=== PATIENT | female | born 1945 | race Caucasian/White ===

== ENCOUNTER 2020-05-09 19:56 | Emergency (ER) | payer OTHER ==
[~2020-05-09] VITALS: Ht 157.5 cm; Wt 57.2 kg
[2020-05-09 20:07] VITALS: BP 150/64
--- NOTE | 2020-05-09 20:10 | NUR ---
TO LOBBY A/W BED AMBULATORY
--- NOTE | 2020-05-09 20:52 | NUR ---
Patient discharged with v/s stable. Written and verbal after care instructions given and explained. Patient alert, oriented and verbalized understanding of instructions. Ambulatory with steady gait. All questions addressed prior to discharge. ID band removed. Patient advised to follow up with PMD. Rx of chlorohexidine gluconate and orajel mouth spray given. Patient educated on indication of medication including possible reaction and side effects. Opportunity to ask questions provided and answered.
[2020-05-09 20:53] VITALS: BP 150/64
== END 2020-05-09 20:52 | disposition home or self-care (01) ==
LOC: MED 19:56
DX: R68.2 Dry mouth, unspecified (principal)
CPT/HCPCS: 99282

== ENCOUNTER 2020-05-16 15:02 | Emergency (ER) | payer OTHER ==
[~2020-05-16] VITALS: Ht 157.5 cm; Wt 56.2 kg
[2020-05-16 15:11] VITALS: BP 102/53
--- NOTE | 2020-05-16 15:15 | NUR ---
PT TAKEN TO BED 2. ISOLATED FOR COVID PRECAUTIONS.
[2020-05-16] MEDS ORDERED: KETOROLAC 15 MG/ML VIAL IM ONE (15:35)
--- NOTE | 2020-05-16 15:49 | NUR ---
75/F C/O THROAT DRYNESS AND BACK PAIN SINCE SUNDAY; PT STATES SHE WAS SEEN HERE SUNDAY FOR SAME THROAT COMPLAINT AND WAS PRESCRIBED MEDICATION. PT STATES THE MEDICATION HAS NOT HELPED AND NOW SHE HAS DEVELOPED BACK PAIN TO LOWER BACK. PT ALSO C/O BODY ACHES. PT STATES SHE LIVES ALONE AND DOES NOT HAVE FAMILY AND WALKS EVERYWHERE. PT STATES SHE WALKED TO THE PHARMACY AFTER HER VISIT IN THE ED AND STATES IT WAS LATE AT NIGHT AND BELIEVES SHE IS TIRED FROM WALKING. PT DENIES ANY INJURY OR TRAUMA OR FALL. HX HTN, DEPRESSION
--- NOTE | 2020-05-16 16:08 | NUR ---
PT RETURNED FROM X-RAY
[2020-05-16 17:54] VITALS: BP 102/53
--- NOTE | 2020-05-16 17:54 | NUR ---
Patient discharged with v/s stable. Written and verbal after care instructions given and explained. Patient alert, oriented and verbalized understanding of instructions. Ambulatory with steady gait. All questions addressed prior to discharge. ID band removed. Patient advised to follow up with PMD. Rx of Augmentin 875, Naproxen 500mg given. Patient educated on indication of medication including possible reaction and side effects. Opportunity to ask questions provided and answered.
== END 2020-05-16 17:54 | disposition home or self-care (01) ==
LOC: MED 15:02
DX: R09.1 Pleurisy (principal); M54.9 Dorsalgia, unspecified; J18.9 Pneumonia, unspecified organism; Z20.828 Contact with and (suspected) exposure to other viral communicable diseases
CPT/HCPCS: 71045; 72072; 87081; 96372; 99284; J1885; U0003

== ENCOUNTER 2020-06-05 19:24 | Emergency (ER) | payer OTHER ==
[~2020-06-05] VITALS: Ht 157.5 cm; Wt 56.7 kg
[2020-06-05 19:55] VITALS: BP 129/90
--- NOTE | 2020-06-05 19:58 | NUR ---
TO LOBBY A/W BED AMBULATORY
--- NOTE | 2020-06-05 20:00 | NUR ---
SEEN AND EXAMINED BY KARIME WITH ORDERS, CARRIED OUT.
[2020-06-05] MEDS ORDERED: ASPIRIN 81 MG TAB.CHEW PO ONE (20:05)
[2020-06-05 20:31] LABS: BASOPHILS # (AUTO) 0.1 K/uL (0.00-0.22); BASOPHILS % (AUTO) 1.4 % (0.0-2.0); EOSINOPHILS # (AUTO) 0.5 K/uL (0-0.4); EOSINOPHILS % (AUTO) 5.6 % (0.0-4.0); HEMATOCRIT 40.6 % (36-48); HEMOGLOBIN 13.6 g/dL (12.0-16.0); LYMPHOCYTES # (AUTO) 2.2 K/uL (2.5-16.5); LYMPHOCYTES % (AUTO) 25.4 % (20.5-51.1); MEAN CORPUSCULAR HEMOGLOBIN 31 pg (27-31); MEAN CORPUSCULAR HGB CONC 33 g/dL (33-37); MEAN CORPUSCULAR VOLUME 93.3 fL (80-94); MONOCYTES # (AUTO) 0.8 K/uL (0.8-1.0); MONOCYTES % (AUTO) 9.4 % (1.7-9.3); NEUTROPHILS # (AUTO) 5.1 K/uL (1.8-7.7); NEUTROPHILS % (AUTO) 58.2 % (42.2-75.2); PLATELET COUNT (AUTO) 405 K/uL (140-450); RED BLOOD CELL COUNT(AUTO) 4.35 MIL/uL (4.20-5.40); RED CELL DISTRIBUTION WIDTH 14.5 % (11.6-13.7); WHITE BLOOD COUNT (AUTO) 8.8 K/uL (4.8-10.8)
[2020-06-05 20:45] LABS: ALBUMIN 3.7 g/dL (3.4-5.0); ANION GAP 12.4 (8-16); ASPARTATE AMINOTRANSFERASE 25 U/L (15-37); CARBON DIOXIDE 30.5 mmol/L (21-32); CHLORIDE 105 mmol/L (98-107); CREATININE 0.9 mg/dL (0.6-1.3); GLUCOSE 102 mg/dL (74-106); POTASSIUM 3.9 mmol/L (3.5-5.1); SODIUM SERUM 144 mmol/L (136-145); TOTAL BILIRUBIN 0.2 mg/dL (0.0-1.0); UREA NITROGEN, BLOOD 18 mg/dL (7-18)
--- NOTE | 2020-06-05 20:50 | NUR ---
MEDICATED PER ERMDS ORDERS, TOLERATED WELL.
[2020-06-05 20:59] LABS: PROTHROMBIN TIME 9.6 secs (10.8-13.4)
--- NOTE | 2020-06-05 21:00 | NUR ---
ALL RESULTS BACK AND NOTED BY ERMD AND FOR D/C
--- NOTE | 2020-06-05 21:14 | NUR ---
EKG PERFORMED IN PHLEBOTOMY CHAIR WITH SCREEN. EKG READS SINUS RHYTHM @ 69
[2020-06-05 22:34] VITALS: BP 119/78
== END 2020-06-05 22:34 | disposition home or self-care (01) ==
LOC: MED 19:24
DX: R07.89 Other chest pain (principal); I10 Essential (primary) hypertension
CPT/HCPCS: 36415; 71045; 80053; 84484; 85025; 85610; 85730; 93005; 99283

== ENCOUNTER 2020-07-28 18:17 | Emergency (ER) | payer OTHER ==
[~2020-07-28] VITALS: Ht 152.4 cm; Wt 54.4 kg
[2020-07-28 18:21] VITALS: BP 130/81
--- NOTE | 2020-07-28 18:25 | NUR ---
PATIENT AMBULATED TO BED 10 WITH STEADY/EVEN GAIT.
--- NOTE | 2020-07-28 18:31 | NUR ---
75 Y/O F BROUGHT IN FROM HOME WITH C/C LEFT EYE PAIN X 5 DAYS. PT STATES A VASE FELL ON HER HEAD 3 WEEKS AGO. TODAY, SHE STATES THAT THE PAIN WORSEN; PT DESCRIBES PAIN 10/10 WITH ASSOCIATED BLURRY VISION TO HER LEFT EYE. PT ALSO STATES ASSOCIATED PAIN TO THE BACK OF HER NECK FROM THE SAME INCIDENT. NO TRAUMA NOTED TO HER HEAD; PT DENIES PAIN ON PALPATION TO HEAD/NECK/BACK. PT STATES SHE TOOK TYLENOL FOR THE PAIN LAST NIGHT 07/27 WITH NO RELIEF. PT DENIES HEADACHE, DIZZINESS, N/V/, ABDOMINAL PAIN, CHEST PAIN, SHORTNESS OF BREATH, RINGING OF THE EARS, FEVER/CHILLS, COLD LIKE SYMPTOMS. PT PLACED ONTO REFUND CLERK. LUNG SOUNDS CTA. BED LOCKED IN LOWEST POSITION, SIDE RAILS X 1. PMH/MEDS: DENIES NKA SX: STOMACH SURGERY 20 YRS AGO
--- NOTE | 2020-07-28 18:44 | NUR ---
PT RESTING IN POSITION OF COMFORT ON PHONE WITH MOTHER. PT STATES HE IS FEELING ANXIOUS SPEAKING WITH MOTHER AND IS REQUESTING ATIVAN FOR ANXIETY. ERMD MADE AWARE. NO OBVIOUS DISTRESS NOTED. RESPIRATIONS EVEN/UNLABORED. FAMILY THERAPIST IN PLACE. BED LOCKED IN LOWEST POSITION, SIDE RAILS X 1, CALL LIGHT IN REACH.
[2020-07-28] MEDS ORDERED: KETOROLAC 60 MG/2 ML VIAL IM ONE (18:55)
[2020-07-28 19:18] VITALS: BP 130/81
== END 2020-07-28 19:18 | disposition home or self-care (01) ==
LOC: MED 18:17
DX: S16.1XXA Strain of muscle, fascia and tendon at neck level, initial encounter (principal); S05.12XA Contusion of eyeball and orbital tissues, left eye, initial encounter; I10 Essential (primary) hypertension; W18.39XA Other fall on same level, initial encounter; Y93.89 Activity, other specified; Y92.89 Other specified places as the place of occurrence of the external cause; Y99.8 Other external cause status
CPT/HCPCS: 96372; 99283; J1885

== ENCOUNTER 2020-11-25 19:50 | Emergency (ER) | payer OTHER ==
[~2020-11-25] VITALS: Ht 157.5 cm; Wt 54.0 kg
[2020-11-25 19:57] VITALS: BP 145/72
--- NOTE | 2020-11-25 19:57 | NUR ---
TO BED AMBULATORY
--- NOTE | 2020-11-25 20:10 | NUR ---
PATIENT BIB SELF FOR C/O R WRIST AND HAND PAIN S/P FALL. PATIENT STATES FELL X 2 HOURS AGO AND PAIN IS SHARP AND CONTINOUS. PATIENT DENIES HITTING HEAD AND LOC. PATIENT STATES ABLE TO MOVE WRIST BUT WITH PAIN. CAP REFILL <3, RADIAL PULSES STRONG AND EQUAL BILAT. CMS INTACT. PATIENT DENIES TAKING OTC MEDICATION FOR PAIN MANAGEMENT. MEDHX: HTN, HYPOTHYROID, DEPRESSION NKA
--- NOTE | 2020-11-25 20:14 | NUR ---
Dr. Warner examining patient.
--- NOTE | 2020-11-25 20:18 | NUR ---
X-Ray at bedside.
[2020-11-25] MEDS ORDERED: MORPHINE SULFATE 4 MG/ML SYR IM ONE (20:20)
[2020-11-25] MEDS ORDERED: IBUP-2213 PO (20:35)
[2020-11-25] MEDS ORDERED: ACET-8386 PO (20:35)
--- NOTE | 2020-11-25 20:42 | NUR ---
POSTERIOR LONG ARM SPLINT PLACED ON PT R ARM AND WRAPPED WITH LETICIA WRAP. +CSM
--- NOTE | 2020-11-25 20:43 | NUR ---
SLING SIZE MEDIUM PLACED ON PT R ARM AND FASTENED
--- NOTE | 2020-11-25 21:00 | NUR ---
CAP REFIL <3. CMS INTACT S/P SPLINT PLACEMENT. PATIENT STATES WRIST AND HAND PAIN DECREASED FROM 10/10 TO 0/10. PATIENT STATES WILL NOT BE DRIVING SELF HOME AND HAS A RIDE WITH FRIEND. NADR FROM MORPHINE. NO DROWSINESS OR ALOC NOTED. VSS.
[2020-11-25 21:05] VITALS: BP 134/64
--- NOTE | 2020-11-25 21:05 | NUR ---
PATIENT LEFT WITHOUT SIGNING D/C PAPERWORK.
--- NOTE | 2020-11-25 21:05 | NUR ---
Patient discharged with v/s stable. Written and verbal after care instructions given and explained. Patient alert, oriented and verbalized understanding of instructions. Ambulatory with steady gait. All questions addressed prior to discharge. ID band removed. Patient advised to follow up with PMD. Rx of IBUPROFEN, NORCO 5-325MG given. Patient educated on indication of medication including possible reaction and side effects. Opportunity to ask questions provided and answered.
== END 2020-11-25 21:05 | disposition home or self-care (01) ==
LOC: MED 19:50
DX: S52.571A Other intraarticular fracture of lower end of right radius, initial encounter for closed fracture (principal); I10 Essential (primary) hypertension; Z79.899 Other long term (current) drug therapy; W19.XXXA Unspecified fall, initial encounter; Y93.89 Activity, other specified; Y92.89 Other specified places as the place of occurrence of the external cause; Y99.8 Other external cause status
CPT/HCPCS: 29105; 73110; 73130; 96372; 99283; J2270

== ENCOUNTER 2020-12-16 01:12 | Emergency (ER) | payer OTHER ==
[~2020-12-16] VITALS: Ht 162.6 cm; Wt 54.0 kg
[~2020-12-16 01:12] MED LIST: ACET-8386 PO; IBUP-2213 PO
[2020-12-16 01:20] VITALS: BP 126/50
--- NOTE | 2020-12-16 01:34 | NUR ---
PT AMBUALTED TO BED 09
--- NOTE | 2020-12-16 01:35 | NUR ---
PT. IS A 75 Y/O MALE THAT CAME INTO ED WITH C/O OF HEADACHE AND RIGHT ARM PAIN. PT. FRIEND STATES THAT SHE CALLED HER TO STATE "MY HEAD HURTS SO MUCH AND MY RIGHT ARM." PT. STATES THAT SHE ALSO TOOK HALF A SLEEPING PILL AND HALF OF NORCO MEDICATION BEFORE COMING TO ED. PT. RATES HER PAIN AT A 8/10 AT THIS TIME. DENIES N/V/D; SKIN IS PINK/WARM/DRY; AAOX3 TO NAME, DATE, AND PLACE ONLY; HR EVEN AND REGULAR; PT DENIES ANY FEVER, CP, SOB, OR COUGH AT THIS TIME; VSS; PATIENT POSITIONED FOR COMFORT WITH FRIEND AT BEDSIDE; HOB ELEVATED; BEDRAILS UP X2; BED DOWN. ER MD MADE AWARE OF PT STATUS. PMH: "THYROID PROBLEMS," HTN, HEART MURMUR, DEPRESSION ALLERGIES: NKA
--- NOTE | 2020-12-16 03:07 | NUR ---
PATIENT AMBUALTED TO RESTROOM WITH STEADY GAIT.
--- NOTE | 2020-12-16 03:09 | NUR ---
PATIENT AMBUALTED TO BED 9 WITH STEADY GAIT.
[2020-12-16] MEDS ORDERED: NACL 0.9% 1,000 ML IV ONE ×2 (03:25)
--- NOTE | 2020-12-16 03:40 | NUR ---
EKG PERFORMED AT BEDSIDE. EKG READS SINUS RHYTHM @ 55
[2020-12-16 03:45] LABS: BASOPHILS # (AUTO) 0.1 K/uL (0.00-0.22); BASOPHILS % (AUTO) 1.3 % (0.0-2.0); EOSINOPHILS # (AUTO) 0.3 K/uL (0-0.4); EOSINOPHILS % (AUTO) 3.8 % (0.0-4.0); HEMATOCRIT 34.3 % (36-48); HEMOGLOBIN 11.5 g/dL (12.0-16.0); LYMPHOCYTES % (AUTO) 36.5 % (20.5-51.1); MEAN CORPUSCULAR HEMOGLOBIN 31 pg (27-31); MEAN CORPUSCULAR HGB CONC 34 g/dL (33-37); MEAN CORPUSCULAR VOLUME 91.9 fL (80-94); MONOCYTES # (AUTO) 0.8 K/uL (0.8-1.0); MONOCYTES % (AUTO) 9.2 % (1.7-9.3); NEUTROPHILS # (AUTO) 4.1 K/uL (1.8-7.7); NEUTROPHILS % (AUTO) 49.2 % (42.2-75.2); PLATELET COUNT (AUTO) 376 K/uL (140-450); RED BLOOD CELL COUNT(AUTO) 3.73 MIL/uL (4.20-5.40); RED CELL DISTRIBUTION WIDTH 13.9 % (11.6-13.7); WHITE BLOOD COUNT (AUTO) 8.3 K/uL (4.8-10.8)
--- NOTE | 2020-12-16 03:50 | NUR ---
XRAY AT BEDSIDE
[2020-12-16 04:00] LABS: ACETAMINOPHEN 2.8 ug/ml (10-30); ALBUMIN 3.5 g/dL (3.4-5.0); ANION GAP 10.6 (8-16); ASPARTATE AMINOTRANSFERASE 15 U/L (15-37); CARBON DIOXIDE 29.2 mmol/L (21-32); CHLORIDE 106 mmol/L (98-107); CREATININE 0.7 mg/dL (0.6-1.3); GLUCOSE 99 mg/dL (74-106); POTASSIUM 3.8 mmol/L (3.5-5.1); SODIUM SERUM 142 mmol/L (136-145); TOTAL BILIRUBIN 0.1 mg/dL (0.0-1.0); UREA NITROGEN, BLOOD 20 mg/dL (7-18)
[2020-12-16 04:04] LABS: SALICYLATE < 2.8 mg/dL (2.8-20.0)
--- NOTE | 2020-12-16 04:50 | NUR ---
Brandon guillaume in ED - 12/16/20 at 0525 by HANK PT. BACK FROM CT. VIA ENOCH
--- NOTE | 2020-12-16 05:20 | NUR ---
PT. TAKEN TO CT VIA ENOCH
--- NOTE | 2020-12-16 05:36 | NUR ---
PT. BACK FROM CT.
--- NOTE | 2020-12-16 05:39 | NUR ---
PT. AMBULATING TO BATHROOM WITH STEADY GAIT, PT. FRIEND ACCOMPANYING
--- NOTE | 2020-12-16 05:59 | NUR ---
PT. IN SOTO POSITION LAYING COMFORTABLY IN BED, WAITING FOR DISPOSITION. FRIEND AT BEDSIDE
[2020-12-16 06:43] LABS: APPEARANCE,URINE CLEAR (CLEAR); BILIRUBIN,URINE NEGATIVE (NEGATIVE); BLOOD, URINE 1+ (NEGATIVE); COLOR,URINE YELLOW (YELLOW); LEUKOCYTE ESTERASE ,URINE NEGATIVE (NEGATIVE); NITRITE, URINE NEGATIVE (NEGATIVE); PH,URINE 7.5 (5.0-9.0); UGLUCOSE NEGATIVE (NEGATIVE)
[2020-12-16 07:02] LABS: BARBITURATE, URINE NEGATIVE ng/ml (NEG <=200); BENZODIAZEPINE, URINE NEGATIVE ng/mL (NEG <=200); CANNABINOID, URINE NEGATIVE ng/mL (NEG <=50); COCAINE, URINE NEGATIVE ng/mL (NEG <=300); OPIATE, URINE NEGATIVE ng/mL (NEG <=2000); PHENCYCLIDINE SCREEN,URINE NEGATIVE ng/mL (NEG <=25)
[2020-12-16 07:04] LABS: RBC,URINE 0-5 /HPF (0-5); WBC,URINE 0-5 /HPF (0-5)
--- NOTE | 2020-12-16 07:11 | NUR ---
REPORT GIVEN TO TERRY [place]. TRANSFER OF CARE AT THIS TIME.
--- NOTE | 2020-12-16 08:00 | NUR ---
PATIENT STATES SHE IS FEELING SLIGHTLY BETTER, REQUESTING FOR A BREAKFAST TRAY. ERMD PUT IN ORDER NOW
--- NOTE | 2020-12-16 08:15 | NUR ---
PATIENT ABLE TO AMBULATE TO RESTROOM WITHOUT ANY DIFFICULTY
--- NOTE | 2020-12-16 08:31 | NUR ---
PATIENT IS NOW REFUSING TO EAT PROVIDED FOOD, STATES SHE JUST WANTS TO SLEEP
[2020-12-16 09:01] VITALS: BP 124/45
--- NOTE | 2020-12-16 09:01 | NUR ---
Patient discharged with v/s stable. Written and verbal after care instructions given and explained. Patient verbalized understanding. Ambulatory with steady gait. All questions addressed prior to discharge. Advised to follow up with PMD.
--- NOTE | 2020-12-19 00:08 | NUR ---
LATE ENTRY- NORMAL SALINE 0.9% DISCONTINUED AT 0815
== END 2020-12-16 09:01 | disposition home or self-care (01) ==
LOC: MED 01:12
DX: R41.82 Altered mental status, unspecified (principal); I10 Essential (primary) hypertension; F32.9 Major depressive disorder, single episode, unspecified; E07.9 Disorder of thyroid, unspecified; Z79.899 Other long term (current) drug therapy
CPT/HCPCS: 36415; 70450; 71045; 80053; 80305; 81001; 84443; 84484; 85025; 93005; 96360; 96361; 99284; G0480; G0482; J7030; 99285